=== PATIENT | female | born 1925 | race Caucasian/White ===

== ENCOUNTER 2016-08-02 00:43 | Inpatient (IN) ==
--- NOTE | 2016-08-02 01:12 | Emergency Department Note ---
Nina Dubose Hilary, am scribing for, and in the presence of, Keven Clayton MD 01:04. Forrest Dubose Robert M, MD, personally performed the services described in this documentation, ascribed by Evelyn Wood in my presence, and it is both accurate and complete . Arrival - Arrival Chief Complaint: Extremity Problem Stated Complaint: right leg weakness ED Nursing Triage Note: pt to room c/o right leg weakness. pt states she was trying tpo walk with her walker and it felt like she couldnt warehouse order picker her right leg. pt [id number] no slurred spezach, no facial droop Mode of Arrival: Stretcher Limitations: No Limitations Source: Patient, RN Notes Reviewed Time Seen by Provider: 08/02/16 00:59 - History of Present Illness HPI Narrative: Pt is a 89 y/o white female brought to the ED via EMS for c/o right foot pain which onset around 2229. Pt states she was trying to move from her den to her dining room and couldn't lift her right leg. She took her medications and then tried to go to bed but again, couldn't move or walk with her right leg. Pt denies falling. No other complaints or problems stated in the ED. Onset (ago): hour(s) Consistency: constant Severity: mild Severity scale (1-10): 1 Allergies/Adverse Reactions: Allergies Allergy/AdvReac Type Severity Reaction Status Date / Time No Known Allergies Allergy Verified 08/02/16 00:48 Review of System - Review of System 12 point system: reviewed and no additional remarkable complaints except as stated - Review of System Constitutional: Present: weakness (rt foot). Absent: fever Musculoskeletal: Present: leg pain (right leg and foot pain) Neurological: Present: weakness (rt foot weakness) Medical,Surgical,& Family Hx - Medical History Cardio: History of: Hypertension No history of: Congenital Heart Disease, CHF, CAD, Cardiovascular Problems Neurology: No history of: Brain Aneurysm, Cerebral Hemorrhage, Cerebrovascular Accident , Migraine, Parkinson's Disease, Seizures, Neurologocal Cancer HEENT: History of: Eye Problem (GLASSES), Dental Problems (PARTIAL) Rheumatology: No history of;: Gout Genitourinary: History of: Kidney Stones (STATES LEFT KIDNEY REMOVED 1948) Gastrointestinal: History of: GERD Musculoskeletal: History of: Back/Neck Problems (OCCASIONAL NECK PAIN), Musculoskeletal Problems (LEFT CLAVICALE BROKEN) No history of: Amputation, Degenerative Disk Disease, Herniated Disk Other: History of: Cancer (BLADDER CANCER) - Surgical History Cardiac Surgeries: Patient Denies: Cardiac Catheterization, Cardiac Surgery Thoracic Surgeries: Patient denies;: Organ Transplant, Lobectomy Neurologic Surgeries: Patient denies: Brain Aneurysm, Cerebral Hemorrhage, Neurologic Surgery HEENT Surgeries: Surgical HX of: Eye Surgery (BILATERAL CATARACT) Abdominal Surgeries: Surgical HX of: Appendectomy, Cholecystectomy, Colonoscopy Reproductive Surgeries: Surgical HX of;: Genitourinary Surgery (STATES SHE HAD A TUMOR IN BLADDERS IN 2007, REMOVED BY SURGERY), Gynecologic Surgery, Hysterectomy Orthopedic Surgeries: Surgical HX of;: Orthopedic Surgery (FRACTURED HIP 1996, PIN PLACED) - Family History Family History: Reports;: Family Stroke (MOTHER AND BROTHER AFTER CVA) - Social History Smoking Status: Never smoker Frequency of Alcohol Use: None Type of Drug Use: None Exam Vital Signs: Vital Signs Temperature 97.0 F L 08/02/16 00:43 Pulse Rate 91 H 08/02/16 01:11 Respiratory Rate 18 08/02/16 00:43 Blood Pressure 84/64 08/02/16 00:43 O2 Sat by Pulse Oximetry 95 08/02/16 00:43 - General General appearance: alert, in no apparent distress - Head Head exam: Present: atraumatic, normocephalic - Eye Eye exam: Present: normal appearance, PERRL, EOMI - ENT ENT exam: Present: mucous membranes moist, TM's normal bilaterally. Absent: mucous membranes dry - Neck Neck exam: Present: full ROM, trachea midline. Absent: tenderness - Chest Chest inspection: Present: symmetric chest wall rise. Absent: tenderness - Respiratory Respiratory exam: Present: normal lung sounds bilaterally. Absent: respiratory distress - Cardiovascular Cardiovascular exam: Present: regular rate, normal rhythm, normal heart sounds. Absent: murmur, rubs, gallop - Abdominal Exam Abdominal exam: Present: soft, normal bowel sounds. Absent: distention, tenderness - Extremities Exam Extremities exam: Present: full ROM, other (pt was able to lift her right leg up against gravity during exam). Absent: tenderness - Back Exam Back exam: Present: full ROM. Absent: tenderness - Neurological Exam Neurological exam: Present: alert, oriented X3, CN II-XII intact, reflexes normal. Absent: motor sensory deficit - Psychiatric Psychiatric exam: Present: normal affect, normal mood - Skin Skin exam: Present: warm, dry, intact, normal color. Absent: rash Course - Reevaluation(s) Reevaluation #1: Creatinine has been trending upwards. Time: 01:41 - Consultations Consultation #1: Dr. Robbie Reddy will evaluate and admit the patient. Time: 02:40 Results - Labs CBC & BMP: 08/02/16 01:07 08/02/16 01:07 Lab Results: I have reviewed the patients labs - Diagnostic Findings Procedure: CT: image reviewed by me (Stable left frontal infarct. No acute process.) Disposition Clinical Impression: Right leg weakness, Right leg pain, Dehydration, UTI (urinary tract infection) Case discussed with: patient Disposition: Still a Patient Condition: Stable Time of Disposition: 01:42
[2016-08-02 01:36] LABS: Calcium 9.2 MG/DL (8.5-10.1); Magnesium 2.1 MG/DL (1.8-2.4); Osmolality,Calculated 301.7 MOS/KG (273-304); Potassium 3.9 MMOL/L (3.5-5.1)
[2016-08-02 01:38] LABS: Basophils % 0.3 % (0.0-0.8); Eosinophils # 0.1 10*3/uL (0.0-0.87); Eosinophils % 0.6 % (0.00-10.9); Hematocrit 38.9 VOL% (35.7-47.0); Immature Granulocytes % 0.5 %; Immature Granulocytes Absolute 0.06 #; Lymphocytes # 0.4 10*3/uL (1.4-4.0); Lymphocytes % 3.5 % (21.3-54.2); Mean Corpuscular HGB Conc 33.4 GM/DL (32-36); Mean Corpuscular Hemoglobin 29 PG (27-34); Mean Corpuscular Volume 86.4 FL (87-102); Mean Platelet Volume 10.9 FL (9.6-12.0); Monocytes # 1.2 10*3/uL (0.11-0.8); Monocytes % 9.6 % (1.7-12.7); Neutrophils # 10.4 10*3/uL (1.4-7.4); Neutrophils % 85.5 % (38.7-73.9); Platelet Count 171 T/CUMM (130-400); Red Cell Distribution Width 14.4 % (9.3-17.3); White Blood Count 12.1 T/CUMM (4-12)
[2016-08-02 02:00] LABS: PT Patient Result 10.6 SECS
[2016-08-02 02:21] LABS: Apearance,Urine Slightly Hazy (Clear); Bacteria,Urine Many /HPF (Few); Bilirubin,Urine Negative (Negative); Blood, Urine Small mg/dL (Negative); Glucose,Urine (UA) Negative (Negative); Ketones,Urine Negative (Negative); Mucus,Urine Occasional /LPF (Occasional); Nitrite,Urine Negative (Negative); Protein,Urine Negative; RBC,Urine <1 /HPF (0-4); Squamous Epithelial Cell,Urine Occasional /HPF (0-10); Urine Color Yellow (Yellow); Urine Specific Gravity 1.011 (1.001-1.035); Urine Urobilinogen < 2.0 EU/DL (0.2-1.0); WBC,Urine 13 /HPF (0-6)
[2016-08-02] MEDS ORDERED: SODIUM CHLORIDE 0.9% 500 ML IV STA (02:40)
[2016-08-02] MEDS ORDERED: LEVOFLOXACIN INJ 0 ML IV ONE (02:49)
[2016-08-02] MEDS ORDERED: LEVOFLOXACIN 500 MG TABLET PO STA (02:49)
[2016-08-02] MEDS ORDERED: LEVOFLOXACIN INJ 500 MG in PREMIX 1 EACH IV STA (02:56)
--- NOTE | 2016-08-02 03:11 | Hospitalist History & Physical ---
Assessment and Plan (1) Left leg pain Status: Acute Current Visit: Yes (2) Generalized weakness Status: Acute Current Visit: Yes (3) History of arthritis Status: Acute Current Visit: Yes (4) Dehydration Status: Acute Current Visit: Yes (5) UTI (urinary tract infection) Status: Acute Assessment and plan: We will plan for this patient is treating her urinary tract infection getting physical therapy to see her continue home meds as appropriate. Blood pressures running a little bit low hold her blood pressure medicines for now. Provide gentle hydration through the night. Recheck labs in the morning Current Visit: Yes History of Present Illness Chief complaint: Right leg weakness History of present illness: Ms. Keith is a 89 year old female with past medical history significant for arthritis since our ER tonight. Patient says that she was sitting in a chair watching TV. She was going take her night medications and take her teeth out. She could hardly walk with her walker. She said she had a pain in her right foot. She said it was hard to move and felt weak. She ultimately called EMS and she was brought up to our hospital for further evaluation. Patient reported that usually her left leg that gives her problems. Over the same issue 2 weeks ago. When I examined her her right leg move freely but her left leg was painful. I am not sure if patient has gotten confused about which leg is giving her trouble. Upon movement of the left leg she reported significant pain at her left hip. I have ordered a x-ray of it. Patient seems a little drop or her labs blood pressure running a little bit low and possible urinary tract infection I was consulted to admit her. Home Medications Medication Instructions Recorded Confirmed Type Aspirin [Ecotrin] 81 mg PO DAILY 08/02/16 08/02/16 History Hydrocodone/Acetaminophen 1 tablet PO Q6HR PRN 08/02/16 08/02/16 History [Hydrocodon-Acetaminoph 2.5-325] Naproxen [Naprosyn Tab] 500 mg PO BID 08/02/16 08/02/16 History Nebivolol [Bystolic] 5 mg PO DAILY PRN 08/02/16 08/02/16 History Omeprazole 10 mg PO DAILY 08/02/16 08/02/16 History Potassium Chloride 20 meq PO DAILY 08/02/16 08/02/16 History hydroCHLOROthiazide 12.5 mg PO DAILY 08/02/16 08/02/16 History [Hydrochlorothiazide] Allergies Allergy/AdvReac Type Severity Reaction Status Date / Time No Known Allergies Allergy Verified 08/02/16 00:48 Medical,Surgical,& Family Hx - Medical History Cardio: History of: Hypertension No history of: Congenital Heart Disease, CHF, CAD, Cardiovascular Problems Neurology: No history of: Brain Aneurysm, Cerebral Hemorrhage, Cerebrovascular Accident , Migraine, Parkinson's Disease, Seizures, Neurologocal Cancer HEENT: History of: Eye Problem (GLASSES), Dental Problems (PARTIAL) Rheumatology: No history of;: Gout Genitourinary: History of: Kidney Stones (STATES LEFT KIDNEY REMOVED 1948) Gastrointestinal: History of: GERD Musculoskeletal: History of: Back/Neck Problems (OCCASIONAL NECK PAIN), Musculoskeletal Problems (LEFT CLAVICALE BROKEN) No history of: Amputation, Degenerative Disk Disease, Herniated Disk Other: History of: Cancer (BLADDER CANCER) - Surgical History Cardiac Surgeries: Patient Denies: Cardiac Catheterization, Cardiac Surgery Thoracic Surgeries: Patient denies;: Organ Transplant, Lobectomy Neurologic Surgeries: Patient denies: Brain Aneurysm, Cerebral Hemorrhage, Neurologic Surgery HEENT Surgeries: Surgical HX of: Eye Surgery (BILATERAL CATARACT) Abdominal Surgeries: Surgical HX of: Appendectomy, Cholecystectomy, Colonoscopy Reproductive Surgeries: Surgical HX of;: Genitourinary Surgery (STATES SHE HAD A TUMOR IN BLADDERS IN 2007, REMOVED BY SURGERY), Gynecologic Surgery, Hysterectomy Orthopedic Surgeries: Surgical HX of;: Orthopedic Surgery (FRACTURED HIP 1996, PIN PLACED) - Family History Family History: Reports;: Family Stroke (MOTHER AND BROTHER AFTER CVA) - Social History Smoking Status: Never smoker Frequency of Alcohol Use: None Type of Drug Use: None 12 point system: reviewed and no additional remarkable complaints except as stated Exam - Constitutional Vitals: Period Temp Pulse Resp BP Sys/Perdomo Pulse Ox Last 24 Hr 97.0 F-97.0 F 75-93 18-20 84-109/64-77 95-98 General appearance: normal weight - Head Head exam: Present: normal inspection - Eye Eye exam: Present: EOMI Pupils: Present: PATRICIA - ENT ENT exam: Present: normal exam - Neck Neck exam: Present: normal inspection - Respiratory Respiratory exam: Present: clear to auscultation bilaterally - Cardiovascular Cardiovascular exam: Present: regular rate and rhythm - GI/Abdominal GI/Abdominal exam: Present: normal bowel sounds - Extremities Exam Extremities exam: Present: normal inspection, other (Patient had pain on passive movement of her left leg. She freely moved her right leg) - Back Exam Back exam: Present: normal inspection - Neurological Exam Neurological exam: Present: alert - Psychiatric Psychiatric exam: Present: normal affect - Skin Skin exam: Present: normal color Results - Labs CBC & BMP: 08/02/16 01:07 08/02/16 01:07
[2016-08-02] MEDS ORDERED: ONDANSETRON 4 MG/2 ML VIAL IV PRN (03:14)
[2016-08-02] MEDS ORDERED: ACETAMINOPHEN 325 MG TABLET PO PRN (03:14)
[2016-08-02 04:47] LABS: Band Neutrophils 4 % (0-10); Lymphocytes 1 % (20-55); Metamyelocytes 1 %; Myelocytes 3 %; Segmented Neutrophils 88 % (50-85)
[2016-08-02 04:48] LABS: Platelet Estimate Adequate; Total Cells Counted 100
[2016-08-02] MEDS: SODIUM CHLORIDE 0.45% 1,000 ML IV SCH ×2 (05:04→18:31)
--- NOTE | 2016-08-02 06:47 | CT Report ---
CT brain Indication: Right lower extremity weakness Comparison: 03 February 2016 Technique: Axial CT imaging of the brain is performed without contrast with 3 mm increments. Findings: No evidence of hemorrhage, mass mass effect midline shift or acute infarct seen. There is moderate diffuse cerebral atrophy. There are areas of decreased density seen within the white matter likely chronic microvascular change. Encephalomalacia in the left frontal parietal lobe junction is similar to previous exam. Otherwise the brain parenchyma attenuation and differentiation appears within normal limits. The ventricles and cisterns are normal in caliber. No cranial or skull base abnormality is identified. Impression: No evidence of acute process or interval change. This CT exam was performed using one or more the following dose reduction techniques: Automated exposure control, adjustment of the MA and/or KV according to patient size, or use of iterative reconstruction technique. PROCEDURE INTERPRETED AT [facility] DEPARTMENT OF RADIOLOGY Final Report Signed by: Dr. Erickson Álvarez
--- NOTE | 2016-08-02 06:49 | XRay Report ---
XR hip 2v w pelvis LT Indication: Hip pain Comparison: None available Findings: No evidence of acute fracture seen. There is been previous fracture fixation of left femoral neck. The alignment of the joints appears normal. Severe bilateral hip degenerative change is present left greater than right. No soft tissue abnormality is seen. Impression: Hip osteoarthrosis as described above. PROCEDURE INTERPRETED AT [facility] DEPARTMENT OF RADIOLOGY Final Report Signed by: Dr. Erickson Álvarez
--- NOTE | 2016-08-02 06:59 | XRay Report ---
XR foot 2V RT Indication: Pain Comparison: None available Findings: No evidence of fracture seen. Severe hallux valgus is present with hammertoe of the second digit. Moderate first metatarsophalangeal joint degenerative change is present. No soft tissue abnormality is seen. Impression: Hallux valgus changes as described above. PROCEDURE INTERPRETED AT [facility] DEPARTMENT OF RADIOLOGY Final Report Signed by: Dr. Erickson Álvarez
[2016-08-02 07:34] LABS: Basophils % 0.2 % (0.0-0.8); Eosinophils % 0.2 % (0.00-10.9); Hematocrit 36.7 VOL% (35.7-47.0); Hemoglobin 11.8 GM/DL (12.0-16.0); Immature Granulocytes % 0.4 %; Immature Granulocytes Absolute 0.04 #; Lymphocytes # 0.7 10*3/uL (1.4-4.0); Lymphocytes % 7.7 % (21.3-54.2); Mean Corpuscular HGB Conc 32.2 GM/DL (32-36); Mean Corpuscular Hemoglobin 28 PG (27-34); Mean Corpuscular Volume 87.4 FL (87-102); Mean Platelet Volume 10.6 FL (9.6-12.0); Monocytes # 0.9 10*3/uL (0.11-0.8); Neutrophils # 7.3 10*3/uL (1.4-7.4); Neutrophils % 81.5 % (38.7-73.9); Platelet Count 153 T/CUMM (130-400); Red Cell Distribution Width 14.5 % (9.3-17.3)
[2016-08-02 08:28] LABS: Albumin 3.3 G/DL (3.4-5.0); Bilirubin,Total 0.9 MG/DL (0.2-1.0); Calcium 9.1 MG/DL (8.5-10.1); Osmolality,Calculated 299.7 MOS/KG (273-304); Total Protein 6.3 G/DL (6.4-8.3)
[2016-08-02] MEDS: ASPIRIN EC 81 MG TABLET PO SCH (08:46)
[2016-08-02] MEDS: NAPROXEN 500 MG TABLET PO SCH ×2 (08:46→20:48)
[2016-08-02] MEDS: POTASSIUM CHLORIDE 20 MEQ TABLET PO SCH (08:46)
[2016-08-02] MEDS: PANTOPRAZOLE 40 MG TABLET PO SCH (08:46)
[2016-08-02] MEDS: ENOXAPARIN 30 MG/0.3 ML SYRINGE SUBCUT SCH (08:46)
[2016-08-02] MEDS ORDERED: PANTOPRAZOLE 40 MG TABLET PO SCH (09:00)
--- NOTE | 2016-08-02 13:23 | Case Mgmt Physician Query Form ---
TB Signs and Symptoms Screening ([place]) INSTRUCTIONS: To be completed annually on residents/staff with a significant Tuberculin Skin Test (TST) upon admission/hire or a prior significant TST. To be completed on all staff at hire. Please respond to each listed symptom with an (X) in either the "YES" or "NO" box. Do you currently have any of the following symptoms: YES NO ( ) ( x) A cough If yes, is it: ( ) Productive ( ) Non- productive ( ) ( x) Hemoptysis (spitting up blood) ( ) ( x) Chest pains ( ) ( x) Weight Loss ( ) ( x) Fever ( ) ( x) Night Sweats ( ) ( x) Weakness ( ) ( x) Loss of Appetite ( ) ( x) Difficulty Breathing If you answered YES" to any of the above questions, how long have symptoms been present? Comments: If you have any questions, please contact me . Thank you, Anne DEMARCO Email: [email or web address] [facility]
[2016-08-02] MEDS ORDERED: TUBERCULIN SKIN TEST 0.1 ML SYRINGE INTRADERM ONE (15:30)
--- NOTE | 2016-08-02 16:16 | Magnetic Resonance Report ---
History: Right leg weakness Date: 08/02/2016 Study: MRI brain without contrast Comparison exam: MRI brain June 01, [address] brain August 02, 2016 The brain was imaged in 3 planes on the 1.5 Megha magnet without IV contrast, to include diffusion, T2, FLAIR, postcontrast T1-weighted sequences. The ventricles are midline in position without evidence of hydrocephalus. There is no Chiari I malformation. There is no gross pituitary mass. There is no evidence of acute ischemia on the diffusion sequence. There is a moderate amount of patchy increased FLAIR and T2 signal without mass effect compatible with changes of small vessel disease in the periventricular white matter. Mild small vessel disease is also noted in the kirby. Areas of chronic left MCA distribution ischemia are noted in the left temporal lobe and posterior left frontal lobe as on previous studies. There is no parenchymal hemorrhage or area of mass effect. There is no extra-axial hematoma. There is a normal flow void in the superior sagittal sinus. There is no gross flow abnormality in the [place] area. There is evidence of remote cataract surgery bilaterally Impression: No evidence of acute ischemia. Chronic ischemic changes as on previous studies PROCEDURE INTERPRETED AT [facility] DEPARTMENT OF RADIOLOGY Final Report Signed by: Dr. Bernadette Begum
--- NOTE | 2016-08-02 18:36 | XRay Report ---
Portable chest Date: 08/02/2016 Clinical history: Cough, evaluate for TB Comparison: 08/17/2014 Technique: Portable AP sitting chest Findings: The heart is minimally enlarged with diffuse calcification in the wall of the tortuous aorta. Chronic scarring in the lungs. Faint 10 mm noncalcified nodular density in the right midlung zone. Minimal atelectasis at the right lung base. Unremarkable mediastinum with degenerative changes. 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 Indeterminate 10 mm noncalcified nodular density in the right midlung zone. Follow-up PA and lateral chest x-ray is recommended to exclude artifact rather than nodule. Minimal atelectasis at the right lung base. PROCEDURE INTERPRETED AT [facility] DEPARTMENT OF RADIOLOGY Final Report Signed by: Dr. Nedra Esquivel
[2016-08-03] MEDS: LEVOFLOXACIN INJ 250 MG in PREMIX 1 EACH IV SCH (02:08)
[2016-08-03 02:28] LABS: Basophils % 0.3 % (0.0-0.8); Eosinophils # 0.3 10*3/uL (0.0-0.87); Hematocrit 33.7 VOL% (35.7-47.0); Immature Granulocytes % 0.3 %; Immature Granulocytes Absolute 0.02 #; Lymphocytes # 0.9 10*3/uL (1.4-4.0); Lymphocytes % 14.1 % (21.3-54.2); Mean Corpuscular HGB Conc 32.6 GM/DL (32-36); Mean Corpuscular Hemoglobin 28 PG (27-34); Mean Corpuscular Volume 86.9 FL (87-102); Mean Platelet Volume 10.9 FL (9.6-12.0); Monocytes # 0.8 10*3/uL (0.11-0.8); Neutrophils # 4.3 10*3/uL (1.4-7.4); Neutrophils % 68.3 % (38.7-73.9); Platelet Count 135 T/CUMM (130-400); Red Blood Count 3.88 MC/CUMM (3.8-5.5); Red Cell Distribution Width 14.4 % (9.3-17.3); White Blood Count 6.2 T/CUMM (4-12)
[2016-08-03 02:53] LABS: Calcium 8.2 MG/DL (8.5-10.1); Magnesium 1.9 MG/DL (1.8-2.4); Potassium 3.8 MMOL/L (3.5-5.1)
[2016-08-03] MEDS ORDERED: LEVOFLOXACIN INJ 500 MG in PREMIX 1 EACH IV SCH (03:00)
[2016-08-03 07:41] LABS: Folate 5.1 NG/ML (5.4-24.0)
[2016-08-03] MEDS: SODIUM CHLORIDE 0.45% 1,000 ML IV SCH (08:54)
[2016-08-03] MEDS: POTASSIUM CHLORIDE 20 MEQ TABLET PO SCH (09:22)
[2016-08-03] MEDS: PANTOPRAZOLE 40 MG TABLET PO SCH (09:22)
[2016-08-03] MEDS: NAPROXEN 500 MG TABLET PO SCH ×2 (09:22→20:24)
[2016-08-03] MEDS: ASPIRIN EC 81 MG TABLET PO SCH (09:22)
[2016-08-03] MEDS: ENOXAPARIN 30 MG/0.3 ML SYRINGE SUBCUT SCH (09:22)
--- NOTE | 2016-08-03 12:35 | XRay Report ---
XR chest 2V Date: 08/03/2016 11:26 AM History: Abnormal chest x-ray Comparison: 08/02/2016 Technique: PA and lateral chest Findings: The heart is minimally enlarged with diffuse arterial calcification in the wall of the tortuous aorta. Chronic scarring in the lungs. Faint nodular density in right midlung zone is no longer identified. Stable mediastinum with degenerative changes. Prior cholecystectomy. Impression: COPD/bullous emphysema with chronic scarring. 10 mm noncalcified nodular density in the right midlung zone is no longer identified and apparently represented artifact. No acute parenchymal findings. PROCEDURE INTERPRETED AT [facility] DEPARTMENT OF RADIOLOGY Final Report Signed by: Dr. Nedra Esquivel
[2016-08-03] MEDS: CYANOCOBALAMIN 1000 MCG/1 ML VIAL SUBCUT SCH (14:08)
--- NOTE | 2016-08-03 14:16 | Hospitalist Progress Note ---
Assessment and Plan (1) UTI (urinary tract infection) Status: Acute Assessment and plan: Continue levofloxacin Current Visit: Yes (2) Generalized weakness Status: Acute Assessment and plan: CT and MRI without acute process B12 is low normal, will replace. Current Visit: Yes Hospitalist: Subjective Interval history: No acute events overnight. Remains weak but improving. Exam - Constitutional Vitals: Period Temp Pulse Resp BP Sys/Perdomo Pulse Ox Last 24 Hr 97.5 F-98.4 F 62-77 16-20 115-154/53-82 96-98 General appearance: normal weight - Head Head exam: Present: normocephalic, atraumatic - Eye Eye exam: Present: EOMI Pupils: Present: PATRICIA - ENT ENT exam: Present: normal exam - Neck Neck exam: Present: normal inspection - Respiratory Respiratory exam: Present: clear to auscultation bilaterally. Absent: rhonchi, wheezes - Cardiovascular Cardiovascular exam: Present: regular rate and rhythm - GI/Abdominal GI/Abdominal exam: Present: normal bowel sounds, soft. Absent: tenderness, rebound - Extremities Exam Extremities exam: Present: normal inspection - Back Exam Back exam: Present: normal inspection - Neurological Exam Neurological exam: Present: alert, oriented X3 - Psychiatric Psychiatric exam: Present: normal affect, normal mood - Skin Skin exam: Present: warm, intact Results - Labs CBC & BMP: 08/03/16 01:39 08/03/16 01:39 Specialty Discharge - Follow Up or Referrals
[2016-08-03] MEDS: FOLIC ACID 1 MG TABLET PO SCH (18:06)
[2016-08-04] MEDS: SODIUM CHLORIDE 0.45% 1,000 ML IV SCH ×2 (01:33→17:28)
[2016-08-04] MEDS: LEVOFLOXACIN INJ 250 MG in PREMIX 1 EACH IV SCH (02:05)
[2016-08-04] MEDS: FOLIC ACID 1 MG TABLET PO SCH (09:04)
[2016-08-04] MEDS: ASPIRIN EC 81 MG TABLET PO SCH (09:04)
[2016-08-04] MEDS: CYANOCOBALAMIN 1000 MCG/1 ML VIAL SUBCUT SCH (09:04)
[2016-08-04] MEDS: PANTOPRAZOLE 40 MG TABLET PO SCH (09:04)
[2016-08-04] MEDS: ENOXAPARIN 30 MG/0.3 ML SYRINGE SUBCUT SCH (09:04)
[2016-08-04] MEDS: NAPROXEN 500 MG TABLET PO SCH ×2 (09:05→20:35)
[2016-08-04] MEDS: POTASSIUM CHLORIDE 20 MEQ TABLET PO SCH (09:05)
--- NOTE | 2016-08-04 11:41 | Hospitalist Progress Note ---
Assessment and Plan (1) UTI (urinary tract infection) Status: Acute Assessment and plan: Previously on levofloxacin, growing E.coli resistent to levofloxacin Start rocephin Current Visit: Yes (2) Generalized weakness Status: Acute Assessment and plan: CT and MRI without acute process B12 is low normal, will replace Also replacing folate. Current Visit: Yes Hospitalist: Subjective Interval history: No acute events overnight. Patient without complaints today. Waiting on placement Exam - Constitutional Vitals: Period Temp Pulse Resp BP Sys/Perdomo Pulse Ox Last 24 Hr 96.8 F-98.5 F 62-80 18-18 111-145/53-64 95-98 General appearance: over weight - Head Head exam: Present: normocephalic, atraumatic - Eye Eye exam: Present: EOMI Pupils: Present: PATRICIA - ENT ENT exam: Present: normal exam - Neck Neck exam: Present: normal inspection - Respiratory Respiratory exam: Present: clear to auscultation bilaterally. Absent: wheezes - Cardiovascular Cardiovascular exam: Present: regular rate and rhythm - GI/Abdominal GI/Abdominal exam: Present: normal bowel sounds, soft. Absent: tenderness, rebound - Extremities Exam Extremities exam: Present: normal inspection - Back Exam Back exam: Present: normal inspection - Neurological Exam Neurological exam: Present: alert, oriented X3 - Psychiatric Psychiatric exam: Present: normal affect, normal mood - Skin Skin exam: Present: warm, intact Results - Labs CBC & BMP: 08/03/16 01:39 08/03/16 01:39 Specialty Discharge - Follow Up or Referrals
[2016-08-04] MEDS: cefTRIAXone 1,000 MG in SODIUM CHLORIDE 0.9% 100 ML IV SCH (13:19)
[2016-08-05] MEDS: SODIUM CHLORIDE 0.45% 1,000 ML IV SCH (07:51)
[2016-08-05] MEDS: PANTOPRAZOLE 40 MG TABLET PO SCH (07:59)
[2016-08-05] MEDS: CYANOCOBALAMIN 1000 MCG/1 ML VIAL SUBCUT SCH (07:59)
[2016-08-05] MEDS: POTASSIUM CHLORIDE 20 MEQ TABLET PO SCH (07:59)
[2016-08-05] MEDS: ENOXAPARIN 30 MG/0.3 ML SYRINGE SUBCUT SCH (07:59)
[2016-08-05] MEDS: FOLIC ACID 1 MG TABLET PO SCH (07:59)
[2016-08-05] MEDS: NAPROXEN 500 MG TABLET PO SCH (07:59)
[2016-08-05] MEDS: ASPIRIN EC 81 MG TABLET PO SCH (08:03)
[2016-08-05] MEDS: cefTRIAXone 1,000 MG in SODIUM CHLORIDE 0.9% 100 ML IV SCH (11:03)
[2016-08-05 11:04] VITALS: BP 153/52
--- NOTE | 2016-08-05 13:35 | Hospitalist Progress Note ---
Assessment and Plan (1) UTI (urinary tract infection) Status: Acute Assessment and plan: Previously on levofloxacin, growing E.coli resistent to levofloxacin Continue rocephin Current Visit: Yes (2) Generalized weakness Status: Acute Assessment and plan: CT and MRI without acute process B12 is low normal, will replace Also replacing folate. Current Visit: Yes Hospitalist: Subjective Interval history: No acute events overnight. Patient without complaints. Working on placement. Exam - Constitutional Vitals: Period Temp Pulse Resp BP Sys/Perdomo Pulse Ox Last 24 Hr 97.0 F-98.4 F 69-75 18-20 126-154/52-79 95-99 General appearance: normal weight - Head Head exam: Present: normocephalic, atraumatic - Eye Eye exam: Present: EOMI Pupils: Present: PATRICIA - ENT ENT exam: Present: normal exam - Neck Neck exam: Present: normal inspection - Respiratory Respiratory exam: Present: clear to auscultation bilaterally. Absent: rhonchi, wheezes - Cardiovascular Cardiovascular exam: Present: regular rate and rhythm - GI/Abdominal GI/Abdominal exam: Present: normal bowel sounds, soft. Absent: tenderness, rebound - Extremities Exam Extremities exam: Present: normal inspection - Back Exam Back exam: Present: normal inspection - Neurological Exam Neurological exam: Present: alert, oriented X3 - Psychiatric Psychiatric exam: Present: normal affect, normal mood - Skin Skin exam: Present: warm, intact Results - Labs CBC & BMP: 08/03/16 01:39 08/03/16 01:39 Specialty Discharge - Follow Up or Referrals
--- NOTE | 2016-08-05 14:12 | Discharge Summary ---
Hospital Course - Hospital Course Hospital Course: Ms. Keith is a 89 year old female with past medical history significant for arthritis presented to the ED with lower extremity weakness. Patient said that she was sitting in a chair watching TV. She was going to take her night medications and take her teeth out. She could hardly walk with her walker. She said she had a pain in her right foot. She said it was hard to move and felt weak. She ultimately called EMS and she was brought up to our hospital for further evaluation. Patient reported that usually her left leg that gives her problems. Over the same issue 2 weeks ago. Patient was found to have a urinary tract infection in the ED. She was admitted to the hospitalist service for uti and lower extremity weakness. She was gently hydrated and started on Levaquin. Physical therapy was consulted. MRI brain performed, without acute process. Urine culture grew E.coli resistant to Levaquin. She was switched to Rocephin. Patient noted to have low folic acid and normal low B12, replacement of both was initiated. She has now reached maximum benefit of inpatient stay and will be discharged to a swing bed for rehab. - Time spent with patient Time with patient DS: Greater than 30 minutes (35) Diagnosis - Discharge Diagnosis (1) UTI (urinary tract infection) Status: Resolved (2) Generalized weakness Status: Acute Specialty Discharge - Follow Up or Referrals Discharge Plan - Discharge Data Disposition: Swing Bed, [facility], [facility] [place] Condition at Discharge: Stable Discharge Diet: advance to your usual diet Activity: as per physical therapy Hygiene: no restrictions Weight Bearing at Discharge: weight bear as tolerated Contact your physician if you experience:: fever over 101, pain uncontrolled by pain medications - Discharge Medications New Naproxen [Naprosyn Tab] 500 mg PO BID tablet cephALEXin [Keflex] 500 mg PO Q12HR #10 capsule Cyanocobalamin Inj [Vitamin B12 Inj] 1,000 mcg SUBCUT DAILY #0 vial Enoxaparin [Lovenox] 30 mg SUBCUT Q24H syringe Folic Acid Tab 1 mg PO DAILY #30 tablet Continue Aspirin [Ecotrin] 81 mg PO DAILY Nebivolol [Bystolic] 5 mg PO DAILY PRN PRN Reason: Blood Pressure-Increased Potassium Chloride 10 meq PO BID Pravastatin [Pravachol] 40 mg PO DAILY Omeprazole 20 mg PO DAILY Hydrocodone/Acetaminophen [Hydrocodon-Acetaminoph 2.5-325] 1 tablet PO Q6HR PRN #30 tablet PRN Reason: Pain Discontinued Triamterene/Hydrochlorothiazid [Triamterene-Hctz 37.5-25 mg Cp] 1 each PO DAILY - Follow Up or Referral - Forms/Instructions Instructions: Dehydration (DC), Urinary Tract Infection in Women (DC) Exam - Constitutional Vitals: Period Temp Pulse Resp BP Sys/Perdomo Pulse Ox Last 24 Hr 97.0 F-98.4 F 69-75 18-20 126-154/52-79 95-99 General appearance: normal weight - Head Head exam: Present: normocephalic, atraumatic - Eye Eye exam: Present: EOMI Pupils: Present: PATRICIA - ENT ENT exam: Present: normal exam - Neck Neck exam: Present: normal inspection - Respiratory Respiratory exam: Present: clear to auscultation bilaterally - Cardiovascular Cardiovascular exam: Present: regular rate and rhythm - GI/Abdominal GI/Abdominal exam: Present: normal bowel sounds, soft. Absent: tenderness - Extremities Exam Extremities exam: Present: normal inspection - Back Exam Back exam: Present: normal inspection - Neurological Exam Neurological exam: Present: alert, oriented X3 - Psychiatric Psychiatric exam: Present: normal affect, normal mood - Skin Skin exam: Present: warm, intact DS: Provider Date of admission: 08/05/16 07:25 Primary care physician: . No PCP Attending physician on admission: Robbie Reddy MD Consults: 08/02/16 03:32 Consult to Case Mgmt/Social Srvs [CONS] Routine Reason for Case Mgmt/Social Srvs: Home Health 08/02/16 04:14 Consult to Physical Therapy [CONS] Routine Reason for Physical Therapy: Evaluate and Treat 08/02/16 08:25 Consult to Case Mgmt/Social Srvs [CONS] Routine Reason for Case Mgmt/Social Srvs: Swingbed/SNF/Skilled Nursing Consult Comment: [facility] close to family 08/05/16 08:08 Consult to Occupational Therapy [CONS] Routine Reason for Occupational Therapy: Evaluate and Treat Consult Comment: need as soon as possible, for placement Discharging clinician: Octavio Escobedo MD
== END 2016-08-05 15:30 | DRG 690 ==
LOC: EDBD → EDUNIT# → N.EDINP 00:43 → N.ED 00:43 → SUATTDRO 03:14 → N.5E 03:30
PROVIDERS: ADMIT Internal Medicine; ATTEND Internal Medicine